=== PATIENT | male | born 1965 | race Caucasian/White ===

== ENCOUNTER 2018-12-23 03:00 | Emergency (ER) | payer OTHER ==
[~2018-12-23] VITALS: Ht 180.3 cm; Wt 78.5 kg
--- NOTE | 2018-12-23 03:00 | NUR ---
PT JT ALS. TAKEN TO BED 5
[2018-12-23 03:06] VITALS: BP 120/76
[2018-12-23] MEDS ORDERED: NACL 0.9% 500 ML IV ONE (03:13)
[2018-12-23] MEDS ORDERED: KETOROLAC 30 MG/ML VIAL IVP ONE (03:15)
--- NOTE | 2018-12-23 03:24 | NUR ---
Dr. Macdonald evaluating patient at bedside.
--- NOTE | 2018-12-23 03:32 | NUR ---
EKG PERFORMED AT BEDSIDE. PT COVERED IN GOWN DURING PROCEDURE
[2018-12-23 03:46] LABS: BASOPHILS % (AUTO) 0.5 % (0.0-2.0); EOSINOPHILS # (AUTO) 0.1 K/uL (0-0.4); EOSINOPHILS % (AUTO) 1.3 % (0.0-4.0); HEMATOCRIT 45.5 % (36-52); LYMPHOCYTES # (AUTO) 2.1 K/uL (2.0-11.5); LYMPHOCYTES % (AUTO) 23.1 % (20.5-51.1); MEAN CORPUSCULAR HEMOGLOBIN 29 pg (27-31); MEAN CORPUSCULAR HGB CONC 33 g/dL (33-37); MEAN CORPUSCULAR VOLUME 89.1 fL (80-94); MONOCYTES # (AUTO) 0.4 K/uL (0.8-1.0); MONOCYTES % (AUTO) 4.7 % (1.7-9.3); NEUTROPHILS # (AUTO) 6.4 K/uL (1.8-7.7); NEUTROPHILS % (AUTO) 70.4 % (42.2-75.2); PLATELET COUNT (AUTO) 206 K/uL (140-450); WHITE BLOOD COUNT (AUTO) 9.1 K/uL (4.8-10.8)
[2018-12-23 03:57] LABS: PROTHROMBIN TIME 9.9 secs (10.8-13.4)
--- NOTE | 2018-12-23 04:02 | NUR ---
PT TAKEN TO CT
[2018-12-23 04:11] LABS: ALBUMIN 3.7 g/dL (3.4-5.0); CARBON DIOXIDE 27.4 mmol/L (21-32); CREATININE 1.2 mg/dL (0.7-1.3); POTASSIUM 3.4 mmol/L (3.5-5.1); TOTAL BILIRUBIN 0.6 mg/dL (0.0-1.0)
--- NOTE | 2018-12-23 04:20 | NUR ---
PT RETURN FROM CT
[2018-12-23 05:00] VITALS: BP 122/74
--- NOTE | 2018-12-23 05:00 | NUR ---
Patient discharged with v/s stable. Written and verbal after care instructions given and explained. Patient alert, oriented and verbalized understanding of instructions. Ambulatory with steady gait. All questions addressed prior to discharge. ID band removed. Patient advised to follow up with PMD. Rx of MINERAL OIL AND LACTULOSE given. Patient educated on indication of medication including possible reaction and side effects. Opportunity to ask questions provided and answered.
== END 2018-12-23 05:00 | disposition home or self-care (01) ==
LOC: MED 03:00
DX: K59.09 Other constipation (principal)
CPT/HCPCS: 36415; 71045; 74176; 80053; 81002; 83690; 84484; 85025; 85610; 85730; 93005; 96374; 99284; J1885; J7030; Q0092